=== PATIENT | female | born 1990 | race Caucasian/White ===

== ENCOUNTER 2017-08-24 19:40 | Emergency (ER) | payer OTHER ==
[~2017-08-24] VITALS: Ht 157.5 cm; Wt 49.9 kg
[2017-08-24 19:53] VITALS: BP 120/65
[2017-08-24 20:06] LABS: BILIRUBIN,URINE SMALL (NEG); GLUCOSE,URINE NEGATIVE (NEG); NITRITE,URINE NEGATIVE (NEG); PH,URINE 6.5; PROTEIN,URINE 30 mg/dL (NEG-TRACE)
[2017-08-24 20:20] LABS: BACTERIA,URINE 0 /HPF (0-FEW); RBC,URINE 0 /HPF (0-2); WBC,URINE TNTC /HPF (0-4)
--- NOTE | 2017-08-24 22:05 | PHYS DOC ---
Past Medical History Past Medical History: No Pertinent History Past Surgical History: Other Additional Past Surgical Histo: knee surgery Alcohol Use: None Drug Use: None Adult General Chief Complaint Chief Complaint: ABDOMINAL PAIN HPI HPI Patient is a 27 year old female who presents with 2 day history of lower pelvic pain and low back pain gradual onset moderate severity; mild nausea, no vomiting or diarrhea; no dysuria but does report frequency and low back pain. No flank pain. Some scant vaginal discharge and she just started her period. Remote history of gonorrhea. Review of Systems Review of Systems Constitutional: Denies fever or chills [] Eyes: Denies change in visual acuity, redness, or eye pain [] HENT: Denies nasal congestion or sore throat [] Respiratory: Denies cough or shortness of breath [] Cardiovascular: No additional information not addressed in HPI [] GI: Denies abdominal pain, nausea, vomiting, bloody stools or diarrhea [] : Denies dysuria or hematuria [] Musculoskeletal: Denies back pain or joint pain [] Integument: Denies rash or skin lesions [] Neurologic: Denies headache, focal weakness or sensory changes [] Endocrine: Denies polyuria or polydipsia [] Current Medications Current Medications Current Medications Medications (Trade) Dose Ordered Sig/Joe Start Time Stop Time Status Last Admin Dose Admin Azithromycin (Zithromax) 1,000 mg 1X ONCE 08/24/17 22:15 08/24/17 22:16 DC 08/24/17 22:35 1,000 MG Ceftriaxone Sodium (Rocephin Im) 250 mg 1X ONCE 08/24/17 22:15 08/24/17 22:16 DC 08/24/17 22:35 250 MG Lidocaine HCl (Xylocaine-Mpf 1% Vial) 2 ml STK-MED ONCE 08/24/17 22:29 08/24/17 22:30 DC Allergies Allergies Allergies Coded Allergies Type Severity Reaction Last Updated Verified No Known Drug Allergies 08/24/17 No Physical Exam Physical Exam Constitutional: Well developed, well nourished, no acute distress, non-toxic appearance. [] HENT: Normocephalic, atraumatic, bilateral external ears normal, oropharynx moist, no oral exudates, nose normal. [] Eyes: PERRLA, EOMI, conjunctiva normal, no discharge. [] Neck: Normal range of motion, no tenderness, supple, no stridor. [] Cardiovascular:Heart rate regular rhythm, no murmur [] Lungs & Thorax: Bilateral breath sounds clear to auscultation [] Abdomen: Bowel sounds normal, soft, mild tenderness suprapubically, no masses, no pulsatile masses. Pelvic exam: Sterile exam normal, speculum exam patient has foul-smelling discharge and may be mixed with some old blood, questionable cervical motion tenderness no adnexal masses or tenderness. [] Skin: Warm, dry, no erythema, no rash. [] Back: No tenderness, no CVA tenderness. [] Extremities: No tenderness, no cyanosis, no clubbing, ROM intact, no edema. [] Neurologic: Alert and oriented X 3, normal motor function, normal sensory function, no focal deficits noted. [] Psychologic: Affect normal, judgement normal, mood normal. [] Current Patient Data Vital Signs Vital Signs Date Time Temp Pulse Resp B/P (MAP) Pulse Ox O2 Delivery O2 Flow Rate FiO2 08/24/17 19:53 98.5 90 18 120/65 (83) 100 Room Air 98.5 Lab Values Laboratory Tests Test 08/24/17 19:51 Urine Collection Type Unknown Urine Color Nathaly Urine Clarity Clear Urine pH 6.5 Urine Specific [place] >=1.030 Urine Protein 30 mg/dL (NEG-TRACE) Urine Glucose (UA) Negative mg/dL (NEG) Urine Ketones (Stick) 15 mg/dL (NEG) Urine Blood Moderate (NEG) Urine Nitrite Negative (NEG) Urine Bilirubin Small (NEG) Urine Urobilinogen Dipstick 1.0 mg/dL (0.2 mg/dL) Urine Leukocyte Esterase Moderate (NEG) Urine RBC 0 /HPF (0-2) Urine WBC Tntc /HPF (0-4) Urine Bacteria 0 /HPF (0-FEW) Urine Mucus Marked /LPF Microbiology 08/24/17 Wet Prep - Final, Complete EKG EKG [] Radiology/Procedures Radiology/Procedures [] Course & Med Decision Making Course & Med Decision Making Pertinent Labs and Imaging studies reviewed. (See chart for details) Urine shows numerous white blood cells but no bacteria. Pelvic exam showed some discharge with mild cervical motion tenderness no adnexal tenderness or masses.[ The patient was given IV Rocephin, by mouth Zithromax in the ED; placed on Macrobid for possible UTI and Flagyl to complete her cervicitis treatment.] Dragon Disclaimer Dragon Disclaimer This electronic medical record was generated, in whole or in part, using a voice recognition dictation system. Departure Departure Impression: Primary Impression: Urinary tract infection Additional Impression: Cervicitis Disposition: 01 HOME, SELF-CARE Condition: STABLE Referrals: NO PCP (PCP) Patient Instructions: Cervicitis, [id number], Urinary Tract Infection, Easy- to-Read Scripts Metronidazole (FLAGYL) 500 Mg Tablet 1 TAB PO BID, #14 TAB Prov: LEOBARDO MANUEL MD 08/24/17 Nitrofurantoin Monohyd/M-Cryst (MACROBID 100 MG CAPSULE) 100 Mg Capsule 1 CAP PO BID, #14 CAP Prov: LEOBARDO MANUEL MD 08/24/17 Problem Qualifiers LEOBARDO MANUEL MD Aug 24, 2017 22:05
[2017-08-24] MEDS ORDERED: AZITHROMYCIN 250 MG TABLET. PO ONE (22:15)
[2017-08-24] MEDS ORDERED: cefTRIAXone IM 250 MG VIAL IM ONE (22:15)
[2017-08-24] MEDS ORDERED: LIDOCAINE 1% PF 2 ML VIAL. ONE (22:29)
[2017-08-24] MEDS ORDERED: NITR100C62 PO (22:48)
[2017-08-24] MEDS ORDERED: METR500T PO (22:48)
--- NOTE | 2017-08-27 12:51 | VNOTE ---
CALL BACK NOTE CALL BACK Microbiology 08/24/17 Wet Prep - Final, Complete 08/24/17 Urine Culture - Final, Complete 08/24/17 Urine Culture Result 1 (KEHINDE) - Final, Complete Attempted to notify patient area code [phone] regards to positive gonorrhea test. Patient had been treated here in the emergency department with Rocephin and Zithromax. The contact number that has been provided had no answer message stated voicemail box has not been set up. Information will be provided to the charge nurse. LUIS DANIEL POPE APRN Aug 27, 2017 12:51
== END 2017-08-24 22:54 | disposition home or self-care (01) ==
LOC: ER 19:40
DX: N39.0 Urinary tract infection, site not specified (principal); N72 Inflammatory disease of cervix uteri
CPT/HCPCS: 36415; 81001; 81025; 87086; 87491; 87591; 96372; 99284; J0696; Q0111; Q0144